=== PATIENT | female | born 1965 ===

== ENCOUNTER 2018-09-18 15:58 | Emergency (ER) | payer BC, OTHER ==
[2018-09-18] MEDS ORDERED: Zofran 4 MG/2 ML VIAL IV ONE (16:29)
[2018-09-18] MEDS ORDERED: Nitrostat 0.4 MG (ED) SL ONE (16:29)
[2018-09-18] MEDS ORDERED: BABY ASPIRIN 81 MG CHEW PO ONE (16:29)
[2018-09-18] MEDS ORDERED: Sodium Chloride 0.9% 1000 ML 1,000 ML IV SCH (16:30)
[2018-09-18] MEDS ORDERED: BABY ASPIRIN 81 MG CHEW ONE (16:31)
[2018-09-18] MEDS ORDERED: NITRO-BID 2% UD PACKETS ONE (16:31)
[2018-09-18 16:42] LABS: Hematocrit 45.8 % (35-47); Hemoglobin 15.3 gm/dl (12.0-16.0); Mean Corpuscular Hemoglobin 31.7 pg (26-32); Mean Corpuscular Hgb Concent. 33.4 g/dl (32-36); Mean Platelet Volume 10.2 fl (6-9.5); Platelet Count 270 K/mm3 (150-450); Red Blood Count 4.82 M/mm3 (4.1-5.4); Red Cell Distribution Width 12.8 % (11.5-14.0); White Blood Count 11.7 K/mm3 (4.0-10.5)
[2018-09-18] MEDS ORDERED: Zofran 4 MG/2 ML VIAL ONE (16:42)
[2018-09-18] MEDS ORDERED: Sodium Chloride 0.9% 1000 ML 1,000 ML ONE (16:42)
[2018-09-18 16:55] LABS: INR 0.96 (0.8-3.0); PROTIME 11.2 SECONDS (9.95-12.35)
--- NOTE | 2018-09-18 17:05 | ERPHSYRPT ---
- History of Present Illness Time Seen by Provider: 09/18/18 16:30 Historian: patient Patient Subjective Stated Complaint: "I have been nauseated and having pain in my back" "I had a heart attack and stents 10 years ago". "I am not having pain now but just. wanted checked out" Triage Nursing Assessment: AAox3, color good, resp easy, lungs clear, states had pain between shoulder blades at 1230 today for approx 2 hours and nausea. Denies pain now, still nauseated, States SD 10 yrs ago with 2 two stents placed . Walked in, Daughter here with patient. Physician History: PATIENT WITH A HISTORY OF CORONARY ARTERY DISEASE, MYOCARDIAL INFARCTION AGE 43 , STENTS X 2 INSERTION COMPLAINS OF UPPER MID BACK AND SUBSTERNAL CHEST PAIN ONSET 12 NOON TODAY, PAIN SCALE 7/10. DENIES DYSPNEA, DIAPHORESIS, PALPITATIONS , RADIATION OF PAIN TO HER JAW, NECK OR ARMS. Timing/Duration: today Activities at Onset: none Location: substernal, back Severity of Pain-Max: moderate Severity of Pain-Current: none Modifying Factors: Improves With: nothing Associated Symptoms: nausea Prior Chest Pain/Cardiac Workup: cardiac cath, heart attack Nitro Today/Relief: no nitro taken today Aspirin Treatment Today: 81 mg x 4, provided by ED Allergies/Adverse Reactions: azithromycin Allergy (Verified 09/18/18 16:46) Home Medications: Aspirin EC 325 mg [Ecotrin 325 MG] 325 mg PO DAILY 09/18/18 [History] Atorvastatin Calcium 40 mg PO DAILY 09/18/18 [History] Divalproex Sodium [Depakote] 1,500 mg PO HS 09/18/18 [History] Ezetimibe 10 mg [Zetia 10 MG] 10 mg PO DAILY 09/18/18 [History] Gabapentin 600 mg PO TID 09/18/18 [History] Lisinopril 10 mg [Zestril 10 MG] 10 mg PO DAILY 09/18/18 [History] clonazePAM [Klonopin] 1 mg PO BID 09/18/18 [History] Hx Tetanus, Diphtheria Vaccination/Date Given: No Hx Influenza Vaccination/Date Given: No Hx Pneumococcal Vaccination/Date Given: No Immunizations Up to Date: No - Review of Systems Constitutional: No Fever, No Chills Eyes: No Symptoms Ears, Nose, & Throat: No Symptoms Respiratory: No Symptoms, No Cough, No Dyspnea Cardiac: Chest Pain, No Edema, No Syncope Abdominal/Gastrointestinal: No Symptoms, No Abdominal Pain, No Nausea, No Vomiting, No Diarrhea Genitourinary Symptoms: No Symptoms, No Dysuria Musculoskeletal: No Symptoms, No Back Pain, No Neck Pain Skin: No Rash Neurological: No Dizziness, No Focal Weakness, No Sensory Changes Psychological: No Symptoms Endocrine: No Symptoms All Other Systems: Reviewed and Negative - Past Medical History Pertinent Past Medical History: (SD 10 yrs ago,) Cardiac History: High Cholesterol, Myocardial Infarction (SD) Other Medical History: C section, Heart cath, Bipolar, - Past Surgical History Past Surgical History: Yes (PTCA, C section) Cardiac: Cardiac Catheterization Gastrointestinal: No Pertinent History Genitourinary: No Pertinent History Musculoskeletal: No Pertinent History Female Surgical History: Section, Tubal Ligation - Social History Smoking Status: Current every day smoker How long have you smoked: 20 yrs Exposure to second hand smoke: Yes Drug Use: none Patient Lives Alone: Yes Significant Family History: heart disease, hypertension, kidney/renal disease - Female History Hx Last Menstrual Period: "postmenopausal" last december was lmp - Nursing Vital Signs Nursing Vital Signs: Initial Vital Signs Temperature 98.5 F 09/18/18 16:16 Pulse Rate 84 09/18/18 16:16 Respiratory Rate 20 09/18/18 16:16 Blood Pressure 141/88 09/18/18 16:16 O2 Sat by Pulse Oximetry 97 09/18/18 16:16 Pain Scale Pain Intensity 0 - Physical Exam General Appearance: no apparent distress, alert Eye Exam: PERRL/EOMI, eyes nml inspection Ears, Nose, Throat Exam: normal ENT inspection, moist mucous membranes Neck Exam: normal inspection, non-tender, supple, full range of motion Respiratory Exam: normal breath sounds, lungs clear, No respiratory distress Cardiovascular Exam: regular rate/rhythm, normal heart sounds Gastrointestinal/Abdomen Exam: soft, normal bowel sounds, No tenderness, No mass Back Exam: normal inspection, No CVA tenderness, No vertebral tenderness Extremity Exam: normal inspection, normal range of motion Neurologic Exam: alert, oriented x 3, cooperative, normal mood/affect, sensation nml, No motor deficits Skin Exam: normal color, warm, dry SpO2 Interpretation: normal SpO2: 97 - Course EKG Interpreted by Me: RATE, Sinus Rhythm, NORMAL AXIS - Radiology Exams Chest X-ray Interpretation: Interpreted by me, Negative, No Infiltrates Ordered Tests: Active Orders 24 hr Category Date Time Status Strategy Specialist STAT Care 09/18/18 16:33 Active EKG-ER Only STAT Care 09/18/18 16:29 Active Oxygen-ED Only Nasal Cannula 2 lpm Care 09/18/18 16:29 Active CHEST 1 VIEW (PORTABLE) Stat Exams 09/18/18 16:32 Taken CBC W DIFF Stat Lab 09/18/18 16:38 Completed CMP Stat Lab 09/18/18 16:38 Completed D-DIMER QUANTITATION Stat Lab 09/18/18 16:38 Completed Manual Differential NC Stat Lab 09/18/18 16:38 Completed NT PRO BNP Stat Lab 09/18/18 16:38 Completed PROTIME WITH INR Stat Lab 09/18/18 16:38 Completed TROPONIN Q3H Lab 09/18/18 16:38 Completed TROPONIN Q3H Lab 09/18/18 19:45 Ordered TROPONIN Q3H Lab 09/18/18 22:45 Ordered TROPONIN Q3H Lab 09/19/18 01:45 Ordered TROPONIN Q3H Lab 09/19/18 04:45 Ordered Medication Summary Generic Name Dose Route Start Last Admin Trade Name Freq PRN Reason Stop Dose Admin Sodium Chloride 1,000 mls @ 50 mls/hr 09/18/18 16:30 09/18/18 17:10 Sodium Chloride 0.9% 1000 Ml IV 10/18/18 16:29 50 mls/hr .Q20H CHANTAL Administration Discontinued Medications Generic Name Dose Route Start Last Admin Trade Name Freq PRN Reason Stop Dose Admin Aspirin 324 mg 09/18/18 16:29 09/18/18 16:50 Baby Aspirin 81 Mg Chew PO 09/18/18 16:30 324 mg STAT ONE Administration Aspirin Confirm 09/18/18 16:31 Baby Aspirin 81 Mg Chew Administered 09/18/18 16:32 Dose 324 mg .ROUTE .STK-MED ONE Nitroglycerin 0.4 mg 09/18/18 16:29 09/18/18 17:16 Nitrostat 0.4 Mg (Ed) SL 09/18/18 16:30 0.4 mg STAT ONE Administration Nitroglycerin Confirm 09/18/18 16:31 Nitro-Bid 2% Ud Packets Administered 09/18/18 16:32 Dose 1 gm .ROUTE .STK-MED ONE Nitroglycerin 1 gm 09/18/18 17:30 09/18/18 16:50 Nitro-Bid 2% Ud Packets TOP 09/18/18 17:31 1 gm STAT ONE Administration Ondansetron HCl 4 mg 09/18/18 16:29 09/18/18 17:11 Zofran 4 Mg/2 Ml Vial IV 09/18/18 16:30 4 mg STAT ONE Administration Ondansetron HCl Confirm 09/18/18 16:42 Zofran 4 Mg/2 Ml Vial Administered 09/18/18 16:43 Dose 4 mg .ROUTE .STK-MED ONE Lab/Rad Data: Laboratory Result Diagrams 09/18/18 16:38 09/18/18 16:38 Laboratory Results 09/18/18 09/18/18 09/18/18 Range/Units 16:38 16:38 16:38 WBC (4.0-10.5) K/mm3 RBC (4.1-5.4) M/mm3 Hgb (12.0-16.0) gm/dl Hct (35-47) % MCV (78-100) fl MCH (26-32) pg MCHC (32-36) g/dl RDW (11.5-14.0) % Plt Count (150-450) K/mm3 MPV (6-9.5) fl Absolute Granulocytes (1.4-6.9) Segmented Neutrophils (36.0-66.0) % Band Neutrophils (0.0-2.0) % Lymphocytes (Manual) (24-44) % Monocytes (Manual) (0.0-12.0) % Eosinophils (Manual) (0.00-3.0) % Platelet Estimate (NORMAL) RBC Morphology PT 11.2 (9.95-12.35) SECONDS INR 0.96 (0.8-3.0) D-Dimer 243 (215-500) ng/mL Sodium 141 (137-145) mmol/L Potassium 4.5 (3.5-5.1) mmol/L Chloride 104 (98-107) mmol/L Carbon Dioxide 26 (22-30) mmol/L Anion Gap 16.1 H (5-15) MEQ/L BUN 11 (7-17) mg/dL Creatinine 0.64 (0.52-1.04) mg/dL Estimated GFR > 60.0 ML/MIN Glucose 90 (74-106) mg/dL Calcium 10.1 (8.4-10.2) mg/dL Total Bilirubin 0.60 (0.2-1.3) mg/dL AST 34 (14-36) U/L ALT 34 (0-35) U/L Alkaline Phosphatase 94 (38-126) U/L Troponin I < 0.012 (0.000-0.034) ng/mL NT-Pro-B Natriuret Pep 32.3 (0-900) pg/mL Serum Total Protein 7.6 (6.3-8.2) g/dL Albumin 4.4 (3.5-5.0) g/dL 09/18/18 Range/Units 16:38 WBC 11.7 H (4.0-10.5) K/mm3 RBC 4.82 (4.1-5.4) M/mm3 Hgb 15.3 (12.0-16.0) gm/dl Hct 45.8 (35-47) % MCV 95.0 (78-100) fl MCH 31.7 (26-32) pg MCHC 33.4 (32-36) g/dl RDW 12.8 (11.5-14.0) % Plt Count 270 (150-450) K/mm3 MPV 10.2 H (6-9.5) fl Absolute Granulocytes 4.78 (1.4-6.9) Segmented Neutrophils 34 L (36.0-66.0) % Band Neutrophils 7 H (0.0-2.0) % Lymphocytes (Manual) 51 H (24-44) % Monocytes (Manual) 7 (0.0-12.0) % Eosinophils (Manual) 1 (0.00-3.0) % Platelet Estimate NORMAL (NORMAL) RBC Morphology NORMAL PT (9.95-12.35) SECONDS INR (0.8-3.0) D-Dimer (215-500) ng/mL Sodium (137-145) mmol/L Potassium (3.5-5.1) mmol/L Chloride (98-107) mmol/L Carbon Dioxide (22-30) mmol/L Anion Gap (5-15) MEQ/L BUN (7-17) mg/dL Creatinine (0.52-1.04) mg/dL Estimated GFR ML/MIN Glucose (74-106) mg/dL Calcium (8.4-10.2) mg/dL Total Bilirubin (0.2-1.3) mg/dL AST (14-36) U/L ALT (0-35) U/L Alkaline Phosphatase (38-126) U/L Troponin I (0.000-0.034) ng/mL NT-Pro-B Natriuret Pep (0-900) pg/mL Serum Total Protein (6.3-8.2) g/dL Albumin (3.5-5.0) g/dL - Progress Progress: improved Progress Note: 09/18/18 17:15 ADMINISTERED ASPIRIN 324MG ORALLY, APPLICATION NITROGLYCERIN 1" ANTERIOR CHEST WALL. 09/18/18 18:32, PATIENT HAS BEEN CHEST PAIN FREE THROUGHOUT HER HOSPITALIZATION , REFUSES ADMISSION AT 1820, SIGNS OUT AMA, RISKS VS BENEFIT DISCUSSED WITH PATIENT CONCERNING HIS OF PREVIOUS WITH SD HISTORY AND STENTS X 2 Counseled pt/family regarding: lab results - Departure Time of Disposition: 18:40 Departure Disposition: AMA Clinical Impression: ACUTE CHEST PAIN Condition: Stable Critical Care Time: No Referrals: MARY ZEE [Primary Care Provider] - Additional Instructions: NITROGLYCERIN 0.4MG EVERY 5MINUTES FOR 3 DOSES NEEDED. RETURN TO EMERGENCY FOR EPISODES OF CHEST PAIN, SWEATING OR PALPITATIONS. CONSULT YOUR PRIMARY CARE PROVIDER FOR FOLLOWUP IN 3-4 DAYS. Prescriptions: Nitroglycerin 0.4 mg Tablet [Nitrostat 0.4 MG Tablet] 0.4 mg SL PER HOUR PRN #100 bottle PRN Reason: Chest Pain
[2018-09-18 17:06] LABS: ALBUMIN 4.4 g/dL (3.5-5.0); ALKALINE PHOSPHATASE 94 U/L (38-126); ANION GAP 16.1 MEQ/L (5-15); BLOOD UREA NITROGEN 11 mg/dL (7-17); CHLORIDE 104 mmol/L (98-107); Calcium 10.1 mg/dL (8.4-10.2); Carbon Dioxide 26 mmol/L (22-30); Creatinine 1 0.64 mg/dL (0.52-1.04); Glucose 90 mg/dL (74-106); NT PRO BNP 32.3 pg/mL (0-900); Potassium 4.5 mmol/L (3.5-5.1); SGOT/AST 34 U/L (14-36); SGPT/ALT 34 U/L (0-35); SODIUM 141 mmol/L (137-145); Total Protein 7.6 g/dL (6.3-8.2)
[2018-09-18 17:12] LABS: BAND 7 % (0.0-2.0); Eosinophil 1 % (0.00-3.0); Lymphocytes 51 % (24-44); Monocyte 7 % (0.0-12.0); Neutrophils 34 % (36.0-66.0); Platelet Estimate NORMAL (NORMAL); Total Cells Counted 100
[2018-09-18 17:13] LABS: Granulocyte Absolute (ANC) 4.78 (1.4-6.9)
[2018-09-18] MEDS ORDERED: NITRO-BID 2% UD PACKETS TOP ONE (17:30)
[2018-09-18 18:37] VITALS: O2SAT 97
[2018-09-18 18:55] VITALS: BP 107/74; PULSE 96
--- NOTE | 2018-09-18 22:17 | XRAY ---
Indication: Chest pain. Comparison: March 15, 2010. Portable chest again demonstrates normal heart, lungs, and bony thorax.
== END 2018-09-18 18:57 | disposition home or self-care (01) ==
LOC: ED 15:58
DX: R07.9 Chest pain, unspecified (principal); E78.00 Pure hypercholesterolemia, unspecified; I25.2 Old myocardial infarction; F31.9 Bipolar disorder, unspecified; I25.10 Atherosclerotic heart disease of native coronary artery without angina pectoris; M54.6 Pain in thoracic spine
CPT/HCPCS: 36415; 71045; 80053; 83880; 84484; 85025; 85379; 85610; 93005; 93041; 96360; 96374; 99284; J2405; A9270-GY